=== PATIENT | female | born 1950 | race African-American/Black ===

== ENCOUNTER 2018-07-05 09:58 | Inpatient (IN) | payer MEDICAID, MEDICARE ==
[~2018-07-05] VITALS: Ht 162.6 cm; Wt 83.5 kg
[2018-07-05 14:49] LABS: BASOPHILS % 0.7 % (0.0-2.0); EOSINOPHILS % 0.4 % (0.0-5.0); HEMATOCRIT. 38.1 % (36.0-48.0); HEMOGLOBIN. 12.4 g/dL (12.0-16.0); MEAN CORPUSCULAR HEMOGLOBIN 27.7 pg (28.0-32.0); MEAN PLATELET VOLUME 7.3 fl (7.4-10.4); MONOCYTES % 10.4 % (2.0-8.0); NEUTROPHILS % 67.5 % (40.0-76.0); PLATELET 346 x1000/uL (130-400); RED BLOOD CELL COUNT 4.49 mill/uL (4.2-5.4); RED CELL DISTRIBUTION WIDTH 14.8 % (11.6-14.6)
[2018-07-05 14:53] LABS: CHLORIDE 109 mEq/L (98-107)
[2018-07-05 14:55] LABS: INR 1.1
[2018-07-05] MEDS ORDERED: KETOROLAC 30MG/ML VIAL IV STA (15:46)
[2018-07-05] MEDS ORDERED: ASPIRIN 81MG TABLET PO ONE (16:00)
[2018-07-05] MEDS ORDERED: ONDANSETRON HCL 4MG/2ML INJ IV PRN (16:00)
[2018-07-05] MEDS ORDERED: NITROGLYCERIN OINT 1GM/INCH UDPKT TD ONE (16:00)
[2018-07-05] MEDS ORDERED: CLONIDINE 0.1MG TABLET PO PRN (16:00)
[2018-07-05] MEDS ORDERED: DOCUSATE SODIUM 100MG CAPSULE PO PRN (16:00)
[2018-07-05] MEDS: ACETAMINOPHEN 325MG TABLET PO PRN (18:06)
[2018-07-05] MEDS ORDERED: IOHEXOL-350 100 ML BOTTLE ONE (20:11)
[2018-07-05 22:15] VITALS: BP 122/62
[2018-07-05 22:43] VITALS: BP 122/62
[2018-07-06] MEDS: SODIUM CHLORIDE 0.45% 1,000 ML IV SCH ×2 (00:26→23:53)
[2018-07-06] MEDS: ENOXAPARIN 40MG/0.4ML SYR SUBCUT SCH ×2 (00:27→20:28)
[2018-07-06] MEDS: ACETAMINOPHEN 325MG TABLET PO PRN ×2 (00:28→12:55)
[2018-07-06 07:38] LABS: BASOPHILS % 0.9 % (0.0-2.0); EOSINOPHILS % 2.4 % (0.0-5.0); HEMATOCRIT. 33.5 % (36.0-48.0); HEMOGLOBIN. 11.1 g/dL (12.0-16.0); LYMPHOCYTES % 23.5 % (20.0-50.0); MEAN CORPUSCULAR VOLUME 84.4 fL (81.0-99.0); MEAN PLATELET VOLUME 7.5 fl (7.4-10.4); MONOCYTES % 10.2 % (2.0-8.0); PLATELET 316 x1000/uL (130-400); RED BLOOD CELL COUNT 3.97 mill/uL (4.2-5.4)
[2018-07-06 08:00] VITALS: BP 143/68
[2018-07-06 11:05] LABS: CHLORIDE 108 mEq/L (98-107)
[2018-07-06 11:25] LABS: LDL CHOLESTEROL 46 mg/dL (5-100)
[2018-07-06 11:29] LABS: HDL CHOLESTEROL 81 mg/dL (40-59)
[2018-07-06 12:00] VITALS: BP 131/67
[2018-07-06] MEDS ORDERED: POTA8CAP10 MT (13:11)
[2018-07-06] MEDS ORDERED: FURO40TA5 MT (13:11)
[2018-07-06] MEDS ORDERED: NAPR-681 MT (13:11)
[2018-07-06] MEDS ORDERED: SIMV40TA5 MT (13:11)
[2018-07-06] MEDS ORDERED: PARO-41 MT (13:11)
[2018-07-06] MEDS ORDERED: [UNRECOGNIZED DRUG - CODE] MT (13:11)
[2018-07-06 16:00] VITALS: BP 143/72
[2018-07-06 17:56] LABS: CLARITY URINE CLEAR (CLEAR); COLOR URINE YELLOW (YELLOW); KETONES URINE 1+ (NEGATIVE); LEUKOCYTE ESTERASE URINE 1+ (NEGATIVE); NITRITE URINE NEGATIVE (NEGATIVE); OCCULT BLOOD URINE NEGATIVE (NEGATIVE); PH URINE 5.5 (4.5-8.0); PROTEIN URINE NEGATIVE (NEGATIVE); SPECIFIC GRAVITY URINE 1.039 (1.005-1.030)
[2018-07-06] MEDS: HYDROMORPHONE HCL/PF 2MG/ML CPJ IV PRN ×2 (18:02→23:53)
[2018-07-06 20:00] VITALS: BP 160/75
[2018-07-06] MEDS: AMLODIPINE 2.5MG TABLET PO SCH (20:29)
[2018-07-07] VITALS: BP 160/66
[2018-07-07] MEDS: IPRATROPIUM/ALBUTEROL 0.5-3(2.5)MG/3ML NEB INH SCH ×4 (01:59→22:30)
[2018-07-07 04:00] VITALS: BP_SYST 141; BP_SYST 154; BP_DIAS 61; BP_DIAS 63
[2018-07-07 07:43] LABS: BASOPHILS % 0.9 % (0.0-2.0); EOSINOPHILS % 1.8 % (0.0-5.0); HEMATOCRIT. 36.5 % (36.0-48.0); HEMOGLOBIN. 11.9 g/dL (12.0-16.0); LYMPHOCYTES % 19.9 % (20.0-50.0); MEAN CORPUSCULAR HEMOGLOBIN 27.5 pg (28.0-32.0); MEAN PLATELET VOLUME 7.3 fl (7.4-10.4); MONOCYTES % 11.7 % (2.0-8.0); NEUTROPHILS % 65.7 % (40.0-76.0); PLATELET 349 x1000/uL (130-400); RED BLOOD CELL COUNT 4.34 mill/uL (4.2-5.4)
[2018-07-07 07:44] LABS: CHLORIDE 106 mEq/L (98-107)
[2018-07-07 08:00] VITALS: BP 184/97
[2018-07-07] MEDS: AMLODIPINE 2.5MG TABLET PO SCH (08:24)
[2018-07-07] MEDS: SODIUM CHLORIDE 0.45% 1,000 ML IV SCH ×2 (08:24→20:55)
[2018-07-07] MEDS ORDERED: SODIUM BICARBONATE 4% (2.4MEQ) 5ML VIAL IV ONE (11:47)
[2018-07-07] MEDS ORDERED: LIDOCAINE HCL 1% 20ML VIAL (Pyxis) INJ ONE (11:48)
[2018-07-07 12:05] VITALS: BP 147/75
[2018-07-07 16:25] VITALS: BP 144/73
[2018-07-07] MEDS: ACETAMINOPHEN 325MG TABLET PO PRN (17:37)
[2018-07-07 20:00] VITALS: BP 149/62
[2018-07-07] MEDS: ENOXAPARIN 40MG/0.4ML SYR SUBCUT SCH (20:54)
[2018-07-07] MEDS: AMLODIPINE 5MG TABLET PO SCH (20:56)
[2018-07-08] VITALS: BP 148/81
[2018-07-08] MEDS: IPRATROPIUM/ALBUTEROL 0.5-3(2.5)MG/3ML NEB INH SCH ×2 (02:09→10:00)
[2018-07-08 04:00] VITALS: BP 138/72
[2018-07-08 08:00] VITALS: BP 142/76
[2018-07-08] MEDS: AMLODIPINE 5MG TABLET PO SCH (09:23)
[2018-07-08 12:23] VITALS: BP 140/77
[2018-07-08 15:30] VITALS: BP 140/77
[2018-07-08 16:25] VITALS: BP 150/89
== END 2018-07-08 14:45 | disposition home health service (06) | DRG 313 ==
LOC: ER 10:21 → 5WST 16:01 → EDBEDREQ 16:04 → EDBEDREQTM 16:04 → SUPCPDRO 19:50 → ENRESERV 20:39
PROVIDERS: ADMIT Internal Medicine Nephrology; ATTEND Internal Medicine Nephrology
PROC: 0JBD3ZX Excision of Right Upper Arm Subcutaneous Tissue and Fascia, Percutaneous Approach, Diagnostic (ICD-10-PCS; principal; 2018-07-07)
DX: R07.89 Other chest pain (principal); I10 Essential (primary) hypertension; E78.5 Hyperlipidemia, unspecified; M19.90 Unspecified osteoarthritis, unspecified site; F09 Unspecified mental disorder due to known physiological condition; R22.31 Localized swelling, mass and lump, right upper limb
CPT/HCPCS: 36415; 38505; 71045; 71275; 76942; 80048; 80061; 83880; 84443; 84484; 88305; 93005; 93306; 93970; 93971; 96374; 96375; 97162; 99285; J1170; J1650; J1885; J2405; J3490; J7620; Q9967